=== PATIENT | male | born 1995 | race African-American/Black ===

== ENCOUNTER 2024-02-29 02:18 | Emergency (ER) | payer OTHER ==
[~2024-02-29] VITALS: Ht 177.8 cm; Wt 87.0 kg
[2024-02-29 02:21] VITALS: BP 107/52; PULSE 88; RESP 18; TEMP 98.2; O2SAT 96
== END 2024-02-29 04:53 ==
LOC: ER 02:26
DX: S29.8XXA Other specified injuries of thorax, initial encounter (principal); X58.XXXA Exposure to other specified factors, initial encounter; Y93.89 Activity, other specified; Y92.89 Other specified places as the place of occurrence of the external cause; Y99.8 Other external cause status
CPT/HCPCS: 71045; 99283